=== PATIENT | male | born 1935 | race Caucasian/White ===

== ENCOUNTER 2020-02-14 13:19 | Inpatient (IN) | payer OTHER, MEDICAID ==
[~2020-02-14] VITALS: Ht 157.5 cm; Wt 65.3 kg
[2020-02-14 13:20] VITALS: BP_SYST 154
[2020-02-14] MEDS ORDERED: NACL 0.9% 1,000 ML IV ONE (13:23)
[2020-02-14 14:36] LABS: BASOPHILS % (AUTO) 0.3 % (0.0-2.0); EOSINOPHILS # (AUTO) 0.1 K/uL (0.0-0.4); EOSINOPHILS % (AUTO) 0.9 % (0.0-4.0); HEMOGLOBIN 12.5 g/dL (14.0-18.0); LYMPHOCYTES # (AUTO) 1.8 K/uL (1.0-5.5); LYMPHOCYTES % (AUTO) 23.6 % (20.5-51.5); MEAN CORPUSCULAR HEMOGLOBIN 30 pg (27-31); MEAN CORPUSCULAR HGB CONC 34 % (32-36); MEAN CORPUSCULAR VOLUME 90 fL (79.0-98.0); MONOCYTES # (AUTO) 0.5 K/uL (0.0-1.0); MONOCYTES % (AUTO) 6.9 % (1.7-9.3); NEUTROPHILS # (AUTO) 5.2 K/uL (1.8-7.7); NEUTROPHILS % (AUTO) 68.3 % (40.0-70.0); PLATELET COUNT (AUTO) 220 K/uL (130-430); RED CELL DISTRIBUTION WIDTH 14.5 % (9.0-15.0); WHITE BLOOD COUNT (AUTO) 7.6 K/uL (4.8-10.8)
[2020-02-14 14:49] LABS: ANION GAP 5 (5-15); CALCIUM 8.4 mg/dL (8.4-11.0); CHLORIDE 104 mmol/L (98-107); CREATININE 1.22 mg/dL (0.55-1.30); GLUCOSE 130 mg/dL (70-99); POTASSIUM 3.9 mmol/L (3.5-5.1); SODIUM SERUM 140 mmol/L (136-145); UREA NITROGEN, BLOOD 21 mg/dL (8-21)
[2020-02-14 15:04] LABS: ALANINE AMINOTRANSFERASE 43 U/L (12-78); ALBUMIN 3.5 g/dL (3.4-4.8); ASPARTATE AMINOTRANSFERASE 144 U/L (10-37); INR 1.1 (0.80-1.20); TOTAL BILIRUBIN 1.1 mg/dL (0.0-1.0)
[2020-02-14] MEDS ORDERED: BACITRACIN 1 GM OINT TP ONE (15:04)
[2020-02-14 15:08] LABS: ALCOHOL, BLOOD < 3 mg/dL (<10); AMYLASE 1089 U/L (0-100)
[2020-02-14 15:10] LABS: LIPASE 11064 U/L (73-393)
[2020-02-14] MEDS ORDERED: cefTRIAXone 1 GM VIAL IM ONE (16:15)
[2020-02-14 16:28] LABS: BARBITURATE, URINE NEGATIVE (NEG <=200); BENZODIAZEPINE, URINE NEGATIVE (NEG <=150); CANNABINOID, URINE NEGATIVE (NEG <=50); COCAINE, URINE NEGATIVE (NEG <=150); METHAMPHETAMINES SCREEN,URINE NEGATIVE (NEG <=500); OPIATE, URINE NEGATIVE (NEG <=100); PHENCYCLIDINE SCREEN,URINE NEGATIVE (NEG <=25); UR TRICYCLIC ANTIDEPRESSANTS NEGATIVE (NEG <=300); URINE AMPHETAMINE NEGATIVE (NEG <=500); URINE METHADONE NEGATIVE (NEG <=200); URINE OXYCODONE SCREEN NEGATIVE (NEG <=100); URINE PROPOXYPHENE SCREEN NEGATIVE (NEG <=300)
[2020-02-14] MEDS ORDERED: cefTRIAXone 1 GM in D5W 50 ML IV ONE (16:30)
[2020-02-14] MEDS ORDERED: cefTRIAXone 1 GM VIAL ONE (16:47)
[2020-02-14 17:29] VITALS: BP_SYST 139
[2020-02-14] MEDS ORDERED: ASPI-1153 PO (17:51)
[2020-02-14] MEDS ORDERED: FINA5TAB3 PO (17:51)
[2020-02-14] MEDS ORDERED: LOSA25TA3 PO (17:51)
[2020-02-14] MEDS ORDERED: SENN8.6T19 PO (17:51)
[2020-02-14] MEDS ORDERED: TAMS-11 PO (17:51)
[2020-02-14] MEDS ORDERED: ROPI3TAB PO (17:51)
[2020-02-14] MEDS ORDERED: MIRT15TA7 PO (17:51)
[2020-02-14] MEDS ORDERED: DONE5TAB26 PO (17:51)
[2020-02-14] MEDS ORDERED: CARB25TA3 PO (17:51)
[2020-02-14] MEDS ORDERED: CHOL500037 PO (17:51)
[2020-02-14] MEDS ORDERED: MEMA10TA PO (17:51)
[2020-02-14] MEDS: NACL 0.9% 1,000 ML IV SCH (18:00)
[2020-02-14] MEDS: QUEtiapine FUMARATE 25 MG TABLET PO SCH (19:56)
[2020-02-14] MEDS: MIRTAZAPINE 15 MG TABLET PO SCH (20:01)
[2020-02-14] MEDS: MEMANTINE HCL 5 MG TABLET PO SCH (20:01)
[2020-02-14] MEDS ORDERED: CARBIDOPA 25 MG PO SCH (21:00)
[2020-02-14 22:18] VITALS: BP_SYST 145
[2020-02-15] MEDS: NACL 0.9% 1,000 ML IV SCH ×2 (06:33→18:34)
[2020-02-15 07:44] LABS: BASOPHILS % (AUTO) 0.4 % (0.0-2.0); EOSINOPHILS # (AUTO) 0.1 K/uL (0.0-0.4); EOSINOPHILS % (AUTO) 1.4 % (0.0-4.0); HEMATOCRIT 37.9 % (36-54); HEMOGLOBIN 12.5 g/dL (14.0-18.0); LYMPHOCYTES # (AUTO) 2.1 K/uL (1.0-5.5); LYMPHOCYTES % (AUTO) 34.6 % (20.5-51.5); MEAN CORPUSCULAR HEMOGLOBIN 30 pg (27-31); MEAN CORPUSCULAR HGB CONC 33 % (32-36); MEAN CORPUSCULAR VOLUME 92 fL (79.0-98.0); MONOCYTES # (AUTO) 0.4 K/uL (0.0-1.0); MONOCYTES % (AUTO) 7.1 % (1.7-9.3); NEUTROPHILS # (AUTO) 3.4 K/uL (1.8-7.7); NEUTROPHILS % (AUTO) 56.5 % (40.0-70.0); PLATELET COUNT (AUTO) 190 K/uL (130-430); RED BLOOD CELL COUNT(AUTO) 4.12 MIL/uL (4.2-6.2); RED CELL DISTRIBUTION WIDTH 14.5 % (9.0-15.0); WHITE BLOOD COUNT (AUTO) 6.1 K/uL (4.8-10.8)
[2020-02-15 08:00] VITALS: BP_SYST 159
[2020-02-15 08:04] LABS: ALANINE AMINOTRANSFERASE 125 U/L (12-78); ALBUMIN 3.2 g/dL (3.4-4.8); ANION GAP 6 (5-15); ASPARTATE AMINOTRANSFERASE 92 U/L (10-37); CALCIUM 8.4 mg/dL (8.4-11.0); CHLORIDE 111 mmol/L (98-107); FREE T4 (FREE THYROXINE) 1.2 ng/dl (0.8-1.5); GLUCOSE 92 mg/dL (70-99); PHOSPHORUS 3.5 mg/dL (2.7-4.5); POTASSIUM 4.2 mmol/L (3.5-5.1); SODIUM SERUM 145 mmol/L (136-145); TOTAL BILIRUBIN 0.8 mg/dL (0.0-1.0); UREA NITROGEN, BLOOD 13 mg/dL (8-21)
[2020-02-15 08:20] LABS: LIPASE 4566 U/L (73-393)
[2020-02-15] MEDS: SENNOSIDES 8.6 MG TABLET PO SCH (10:34)
[2020-02-15] MEDS: MEMANTINE HCL 5 MG TABLET PO SCH ×2 (10:34→20:30)
[2020-02-15] MEDS: DONEPEZIL HCL 5 MG TABLET (ARICEPT) PO SCH (10:34)
[2020-02-15] MEDS: TAMSULOSIN HCL 0.4 MG CAP PO SCH ×3 (10:34→18:34)
[2020-02-15] MEDS: ASPIRIN 81 MG TABLET(ECOTRIN) PO SCH (10:35)
[2020-02-15] MEDS: LOSARTAN POTASSIUM 25 MG TABLET PO SCH (10:35)
[2020-02-15] MEDS: FINASTERIDE 5 MG TABLET (PROSCAR) PO SCH (10:36)
[2020-02-15 12:20] VITALS: BP_SYST 156
[2020-02-15] MEDS ORDERED: DIATR MEGLU/DIATRIZ SOD 30 ML SOLUTION PO ONE (13:50)
[2020-02-15] MEDS ORDERED: IOHEXOL 100 ML IV ONE (15:42)
[2020-02-15 16:11] VITALS: BP_SYST 114
[2020-02-15] MEDS: QUEtiapine FUMARATE 25 MG TABLET PO SCH (18:34)
[2020-02-15 20:00] VITALS: BP_SYST 150
[2020-02-15] MEDS: MIRTAZAPINE 15 MG TABLET PO SCH (20:30)
[2020-02-15 20:58] LABS: BILIRUBIN,URINE NEGATIVE (NEGATIVE); BLOOD, URINE NEGATIVE (NEGATIVE); CLARITY/URINE CLEAR (CLEAR); COLOR,URINE YELLOW (YELLOW); GLUCOSE,URINE NEGATIVE (NEGATIVE); KETONES,URINE NEGATIVE (NEGATIVE); LEUKOCYTE ESTERASE ,URINE NEGATIVE (NEGATIVE); NITRITE, URINE NEGATIVE (NEGATIVE); PH,URINE 5.5 (5.0-8.0); PROTEIN URINE NEGATIVE (NEGATIVE); UROBILINOGEN,URINE 0.2 (0.2-1.0)
[2020-02-15 23:42] VITALS: BP_SYST 151
[2020-02-16] MEDS: NACL 0.9% 1,000 ML IV SCH ×3 (01:57→21:42)
[2020-02-16 07:39] VITALS: BP_SYST 132
[2020-02-16] MEDS: ASPIRIN 81 MG TABLET(ECOTRIN) PO SCH (08:37)
[2020-02-16] MEDS: MEMANTINE HCL 5 MG TABLET PO SCH ×2 (08:38→21:00)
[2020-02-16] MEDS: TAMSULOSIN HCL 0.4 MG CAP PO SCH ×3 (08:38→21:00)
[2020-02-16] MEDS: LOSARTAN POTASSIUM 25 MG TABLET PO SCH (08:38)
[2020-02-16] MEDS: SENNOSIDES 8.6 MG TABLET PO SCH (08:38)
[2020-02-16] MEDS: DONEPEZIL HCL 5 MG TABLET (ARICEPT) PO SCH (08:38)
[2020-02-16] MEDS: FINASTERIDE 5 MG TABLET (PROSCAR) PO SCH (08:38)
[2020-02-16 09:33] LABS: BASOPHILS % (AUTO) 0.3 % (0.0-2.0); EOSINOPHILS # (AUTO) 0.2 K/uL (0.0-0.4); EOSINOPHILS % (AUTO) 2.7 % (0.0-4.0); HEMATOCRIT 36.9 % (36-54); HEMOGLOBIN 12.2 g/dL (14.0-18.0); LYMPHOCYTES # (AUTO) 2.3 K/uL (1.0-5.5); LYMPHOCYTES % (AUTO) 29.5 % (20.5-51.5); MEAN CORPUSCULAR HEMOGLOBIN 30 pg (27-31); MEAN CORPUSCULAR HGB CONC 33 % (32-36); MEAN CORPUSCULAR VOLUME 92 fL (79.0-98.0); MONOCYTES # (AUTO) 0.6 K/uL (0.0-1.0); MONOCYTES % (AUTO) 7.1 % (1.7-9.3); NEUTROPHILS # (AUTO) 4.7 K/uL (1.8-7.7); NEUTROPHILS % (AUTO) 60.4 % (40.0-70.0); PLATELET COUNT (AUTO) 213 K/uL (130-430); RED BLOOD CELL COUNT(AUTO) 4.02 MIL/uL (4.2-6.2); RED CELL DISTRIBUTION WIDTH 14.7 % (9.0-15.0); WHITE BLOOD COUNT (AUTO) 7.7 K/uL (4.8-10.8)
[2020-02-16 10:01] LABS: ALANINE AMINOTRANSFERASE 95 U/L (12-78); ANION GAP 3 (5-15); CALCIUM 7.6 mg/dL (8.4-11.0); CHLORIDE 109 mmol/L (98-107); GLUCOSE 115 mg/dL (70-99); LIPASE 388 U/L (73-393); POTASSIUM 3.5 mmol/L (3.5-5.1); SODIUM SERUM 139 mmol/L (136-145); TOTAL BILIRUBIN 0.7 mg/dL (0.0-1.0); UREA NITROGEN, BLOOD 10 mg/dL (8-21)
[2020-02-16 10:07] LABS: ASPARTATE AMINOTRANSFERASE 35 U/L (10-37)
[2020-02-16 12:54] VITALS: BP_SYST 132
[2020-02-16] MEDS ORDERED: BISACODYL 5 MG TABLET.DR (DULCOLAX) PO ONE (16:15)
[2020-02-16] MEDS ORDERED: SODIUM PHOSPHATE,MONO-DIBASIC 133 ML ENEMA RC ONE (16:15)
[2020-02-16] MEDS: QUEtiapine FUMARATE 25 MG TABLET PO SCH (17:23)
[2020-02-16 18:21] VITALS: BP_SYST 152
[2020-02-16 20:00] VITALS: BP_SYST 129
[2020-02-16] MEDS: MIRTAZAPINE 15 MG TABLET PO SCH (21:00)
[2020-02-17 00:15] VITALS: BP_SYST 141
[2020-02-17 09:34] VITALS: BP_SYST 146
[2020-02-17] MEDS: SENNOSIDES 8.6 MG TABLET PO SCH (09:35)
[2020-02-17] MEDS: FINASTERIDE 5 MG TABLET (PROSCAR) PO SCH (09:35)
[2020-02-17] MEDS: DONEPEZIL HCL 5 MG TABLET (ARICEPT) PO SCH (09:35)
[2020-02-17] MEDS: ASPIRIN 81 MG TABLET(ECOTRIN) PO SCH (09:35)
[2020-02-17] MEDS: LOSARTAN POTASSIUM 25 MG TABLET PO SCH (09:35)
[2020-02-17] MEDS: MEMANTINE HCL 5 MG TABLET PO SCH ×2 (09:35→19:57)
[2020-02-17] MEDS: TAMSULOSIN HCL 0.4 MG CAP PO SCH ×2 (09:35→19:57)
[2020-02-17] MEDS: BALSAM PERU/CASTOR OIL 60 GM OINT...G. TP SCH (09:42)
[2020-02-17] MEDS: NACL 0.9% 1,000 ML IV SCH (11:04)
[2020-02-17 12:41] VITALS: BP_SYST 143
[2020-02-17 16:00] VITALS: BP_SYST 151
[2020-02-17] MEDS: QUEtiapine FUMARATE 25 MG TABLET PO SCH (18:23)
[2020-02-17 19:47] VITALS: BP_SYST 135
[2020-02-17] MEDS: MIRTAZAPINE 15 MG TABLET PO SCH (19:57)
[2020-02-17 23:52] VITALS: BP_SYST 145
[2020-02-18 07:54] LABS: ALANINE AMINOTRANSFERASE 55 U/L (12-78); ALBUMIN 2.6 g/dL (3.4-4.8); ANION GAP 6 (5-15); ASPARTATE AMINOTRANSFERASE 21 U/L (10-37); CALCIUM 7.6 mg/dL (8.4-11.0); CHLORIDE 112 mmol/L (98-107); CREATININE 1.03 mg/dL (0.55-1.30); GLUCOSE 91 mg/dL (70-99); POTASSIUM 3.7 mmol/L (3.5-5.1); SODIUM SERUM 146 mmol/L (136-145); TOTAL BILIRUBIN 0.7 mg/dL (0.0-1.0); UREA NITROGEN, BLOOD 9 mg/dL (8-21)
[2020-02-18 08:00] VITALS: BP_SYST 137
[2020-02-18 08:30] LABS: HEMOGLOBIN 11.4 g/dL (14.0-18.0); LYMPHOCYTES % (AUTO) 36.1 % (20.5-51.5); MEAN CORPUSCULAR HEMOGLOBIN 31 pg (27-31); MEAN CORPUSCULAR HGB CONC 34 % (32-36); MEAN CORPUSCULAR VOLUME 91 fL (79.0-98.0); MONOCYTES % (AUTO) 7.3 % (1.7-9.3); NEUTROPHILS % (AUTO) 54.5 % (40.0-70.0); PLATELET COUNT (AUTO) 205 K/uL (130-430); RED BLOOD CELL COUNT(AUTO) 3.74 MIL/uL (4.2-6.2); RED CELL DISTRIBUTION WIDTH 14.3 % (9.0-15.0)
[2020-02-18 08:31] LABS: BASOPHILS % (AUTO) 0.2 % (0.0-2.0); EOSINOPHILS # (AUTO) 0.2 K/uL (0.0-0.4); EOSINOPHILS % (AUTO) 1.9 % (0.0-4.0); LYMPHOCYTES # (AUTO) 2.9 K/uL (1.0-5.5); MONOCYTES # (AUTO) 0.6 K/uL (0.0-1.0); NEUTROPHILS # (AUTO) 4.4 K/uL (1.8-7.7)
[2020-02-18] MEDS: BALSAM PERU/CASTOR OIL 60 GM OINT...G. TP SCH (09:00)
[2020-02-18] MEDS: ASPIRIN 81 MG TABLET(ECOTRIN) PO SCH (10:24)
[2020-02-18] MEDS: SENNOSIDES 8.6 MG TABLET PO SCH (10:24)
[2020-02-18] MEDS: FINASTERIDE 5 MG TABLET (PROSCAR) PO SCH (10:24)
[2020-02-18] MEDS: DONEPEZIL HCL 5 MG TABLET (ARICEPT) PO SCH (10:24)
[2020-02-18] MEDS: LOSARTAN POTASSIUM 25 MG TABLET PO SCH (10:25)
[2020-02-18] MEDS: MEMANTINE HCL 5 MG TABLET PO SCH (10:25)
[2020-02-18] MEDS: TAMSULOSIN HCL 0.4 MG CAP PO SCH (10:25)
[2020-02-18 12:37] VITALS: BP_SYST 131
[2020-02-18 16:36] VITALS: BP_SYST 126
[2020-02-18] MEDS: QUEtiapine FUMARATE 25 MG TABLET PO SCH (18:00)
[2020-02-18 18:36] VITALS: BP_SYST 137
[2020-02-18 20:00] VITALS: BP_SYST 129
[2020-02-19] MEDS: TAMSULOSIN HCL 0.4 MG CAP PO SCH ×2 (01:05→09:00)
[2020-02-19] MEDS: MIRTAZAPINE 15 MG TABLET PO SCH (01:05)
[2020-02-19] MEDS: MEMANTINE HCL 5 MG TABLET PO SCH ×2 (01:05→09:00)
[2020-02-19 06:11] VITALS: BP_SYST 138
[2020-02-19 08:00] VITALS: BP_SYST 143
[2020-02-19] MEDS: LOSARTAN POTASSIUM 25 MG TABLET PO SCH (09:00)
[2020-02-19] MEDS: SENNOSIDES 8.6 MG TABLET PO SCH (09:00)
[2020-02-19] MEDS: DONEPEZIL HCL 5 MG TABLET (ARICEPT) PO SCH (09:00)
[2020-02-19] MEDS: ASPIRIN 81 MG TABLET(ECOTRIN) PO SCH (09:00)
[2020-02-19] MEDS: FINASTERIDE 5 MG TABLET (PROSCAR) PO SCH (09:00)
[2020-02-19 12:27] LABS: ANION GAP 10 (5-15); CALCIUM 7.9 mg/dL (8.4-11.0); CHLORIDE 111 mmol/L (98-107); CREATININE 0.99 mg/dL (0.55-1.30); GLUCOSE 109 mg/dL (70-99); POTASSIUM 3.5 mmol/L (3.5-5.1); SODIUM SERUM 144 mmol/L (136-145); UREA NITROGEN, BLOOD 15 mg/dL (8-21)
[2020-02-19 12:35] VITALS: BP_SYST 149
[2020-02-19 12:36] VITALS: BP_SYST 143
== END 2020-02-19 14:19 | disposition home health service (06) | DRG 438 ==
LOC: SED 13:19 → STU 16:09 → SMU 02-17 23:47
PROVIDERS: ADMIT Internal Medicine; ATTEND Internal Medicine
DX: K85.90 Acute pancreatitis without necrosis or infection, unspecified (principal); R65.11 Systemic inflammatory response syndrome (SIRS) of non-infectious origin with acute organ dysfunction; I50.32 Chronic diastolic (congestive) heart failure; S00.211A Abrasion of right eyelid and periocular area, initial encounter; S00.11XA Contusion of right eyelid and periocular area, initial encounter; F02.80 Dementia in other diseases classified elsewhere, unspecified severity, without behavioral disturbance, psychotic disturbance, mood disturbance, and anxiety; N40.0 Benign prostatic hyperplasia without lower urinary tract symptoms; G20 Parkinson's disease; G30.9 Alzheimer's disease, unspecified; D64.9 Anemia, unspecified; W18.30XA Fall on same level, unspecified, initial encounter; S09.90XA Unspecified injury of head, initial encounter; I11.0 Hypertensive heart disease with heart failure; Z79.899 Other long term (current) drug therapy; Z78.1 Physical restraint status; Y93.89 Activity, other specified; Y92.89 Other specified places as the place of occurrence of the external cause; Y99.8 Other external cause status; Z03.818 Encounter for observation for suspected exposure to other biological agents ruled out
CPT/HCPCS: 36415; 70450-TC; 70486-TC; 71045; 72125-TC; 76700-TC; 80048; 80053; 80307; 81003; 82150-TC; 82550-TC; 83605; 83690-TC; 83735-TC; 83880; 84100-TC; 84439; 84484; 85025; 85610-TC; 85730-TC; 87040-TC; 93005; 96361; 96365; 97110-GP; 97116-GP; 97163; 97530-GP; 99285; G0378; G0481; G0482; J0696; J7030; J7060; Q9964; Q9967; U0003-CS